=== PATIENT | female | born 2000 | race Caucasian/White ===

== ENCOUNTER 2018-08-04 21:44 | Emergency (ER) | payer MEDICAID ==
[~2018-08-04] VITALS: Ht 149.9 cm; Wt 53.0 kg
[2018-08-05 01:32] LABS: CLARITY URINE CLOUDY (CLEAR); COLOR URINE YELLOW (YELLOW); KETONES URINE TRACE (NEGATIVE); LEUKOCYTE ESTERASE URINE 1+ (NEGATIVE); NITRITE URINE NEGATIVE (NEGATIVE); OCCULT BLOOD URINE 3+ (NEGATIVE); PROTEIN URINE TRACE (NEGATIVE); SPECIFIC GRAVITY URINE 1.026 (1.005-1.030)
[2018-08-05 03:33] VITALS: BP 106/71
== END 2018-08-05 03:34 | disposition home or self-care (01) ==
LOC: ER 21:44
DX: O02.1 Missed abortion (principal); O23.41 Unspecified infection of urinary tract in pregnancy, first trimester; Z3A.08 8 weeks gestation of pregnancy
CPT/HCPCS: 36415; 76801; 81025; 84702; 86850; 86900; 87077; 87186; 99284

== ENCOUNTER 2018-08-06 20:56 | Emergency (ER) | payer MEDICAID ==
[~2018-08-06] VITALS: Ht 149.9 cm; Wt 52.0 kg
[2018-08-06 21:35] VITALS: BP 100/68
== END 2018-08-07 02:03 | disposition left against medical advice (07) ==
LOC: ER 20:56
DX: N93.8 Other specified abnormal uterine and vaginal bleeding (principal); Z53.21 Procedure and treatment not carried out due to patient leaving prior to being seen by health care provider

== ENCOUNTER 2018-11-26 05:46 | Emergency (ER) | payer MEDICAID ==
[~2018-11-26] VITALS: Ht 149.9 cm; Wt 48.0 kg
[2018-11-26 06:49] LABS: CLARITY URINE TURBID (CLEAR); COLOR URINE YELLOW (YELLOW); KETONES URINE TRACE (NEGATIVE); LEUKOCYTE ESTERASE URINE 3+ (NEGATIVE); NITRITE URINE NEGATIVE (NEGATIVE); OCCULT BLOOD URINE TRACE (NEGATIVE); PH URINE 5.5 (4.5-8.0); PROTEIN URINE 1+ (NEGATIVE); SPECIFIC GRAVITY URINE 1.027 (1.005-1.030)
[2018-11-26 07:18] VITALS: BP 104/66
== END 2018-11-26 07:24 | disposition home or self-care (01) ==
LOC: ER 05:46
DX: O23.41 Unspecified infection of urinary tract in pregnancy, first trimester (principal); Z3A.00 Weeks of gestation of pregnancy not specified
CPT/HCPCS: 81003; 81025; 87077; 87186; 87210; 99283

== ENCOUNTER 2021-04-18 07:22 | Emergency (ER) | payer MEDICAID ==
[~2021-04-18] VITALS: Ht 149.9 cm; Wt 50.0 kg
[2021-04-18] MEDS ORDERED: IPRATROPIUM BROMIDE (0.02%) 0.5MG/2.5ML NEB HHN STA (08:20)
[2021-04-18] MEDS ORDERED: ALBUTEROL (0.083%) 2.5MG/3ML NEB HHN STA (08:20)
[2021-04-18] MEDS ORDERED: ALBU6.7H9 INH (09:03)
[2021-04-18 09:26] VITALS: BP 118/72
== END 2021-04-18 09:27 | disposition home or self-care (01) ==
LOC: ER 07:22
DX: J45.901 Unspecified asthma with (acute) exacerbation (principal)
CPT/HCPCS: 81025; 93005; 94640; 99283; Z7610

== ENCOUNTER 2023-02-20 06:25 | Emergency (ER) | payer SELFPAY ==
[~2023-02-20] VITALS: Ht 149.9 cm; Wt 52.0 kg
[~2023-02-20 06:25] MED LIST: ALBU6.7H3 INH
[2023-02-20 06:34] VITALS: BP 115/82; RESP 18; TEMP 98.1; O2SAT 98
[2023-02-20 06:37] VITALS: PULSE 88
[2023-02-20] MEDS ORDERED: MICO45CR16 VG (07:23)
[2023-02-20 07:48] LABS: UCG SCREEN POSITIVE
[2023-02-20 07:51] LABS: CLARITY URINE TURBID (CLEAR); COLOR URINE YELLOW (YELLOW); GLUCOSE URINE NEGATIVE (NEGATIVE); KETONES URINE NEGATIVE (NEGATIVE); LEUKOCYTE ESTERASE URINE 3+ (NEGATIVE); NITRITE URINE NEGATIVE (NEGATIVE); OCCULT BLOOD URINE TRACE (NEGATIVE); PROTEIN URINE NEGATIVE (NEGATIVE); SPECIFIC GRAVITY URINE 1.013 (1.005-1.030); UROBILINOGEN URINE 0.2 E.U./dL (0.2-1.0)
[2023-02-20 08:40] LABS: SQUAMOUS EPITHELIAL CELL URINE 2+ /lpf (RARE/1+)
[2023-02-20 08:41] LABS: BACTERIA URINE 1+
[2023-02-20 08:43] LABS: RBC URINE NONE SEEN /hpf (0-2)
== END 2023-02-20 09:01 | disposition home or self-care (01) ==
LOC: ER 06:25
DX: B37.31 Acute candidiasis of vulva and vagina (principal); J45.909 Unspecified asthma, uncomplicated
CPT/HCPCS: 81003; 81025; 99283

== ENCOUNTER 2023-04-22 14:26 | Emergency (ER) | payer MEDICAID ==
[~2023-04-22] VITALS: Ht 149.9 cm; Wt 52.0 kg
[~2023-04-22 14:26] MED LIST changes: +MICO45CR16 VG
[2023-04-22 14:32] VITALS: BP 117/68; PULSE 104; RESP 18; TEMP 98.2; O2SAT 100
[2023-04-22] MEDS ORDERED: ISOP30DR11 EACH EAR (15:31)
== END 2023-04-22 16:14 | disposition home or self-care (01) ==
LOC: ER 14:26
DX: H61.22 Impacted cerumen, left ear (principal); J45.909 Unspecified asthma, uncomplicated
CPT/HCPCS: 99282

== ENCOUNTER → 2023-10-11 | Emergency (ER) | payer MEDICAID ==
[~2023-10-11] VITALS: Ht 160 cm; Wt 66.0 kg
[~2023-10-11] MED LIST changes: +ISOP30DR11 EACH EAR; +MICO14CR6 TP; +NITR-87 MT
[2023-10-11 16:25] VITALS: O2SAT 97
[2023-10-11 18:20] LABS: CLARITY URINE CLEAR (CLEAR); COLOR URINE YELLOW (YELLOW); GLUCOSE URINE NEGATIVE (NEGATIVE); KETONES URINE NEGATIVE (NEGATIVE); LEUKOCYTE ESTERASE URINE 3+ (NEGATIVE); NITRITE URINE NEGATIVE (NEGATIVE); OCCULT BLOOD URINE NEGATIVE (NEGATIVE); PH URINE 6.5 (4.5-8.0); PROTEIN URINE NEGATIVE (NEGATIVE); SPECIFIC GRAVITY URINE 1.017 (1.005-1.030); UROBILINOGEN URINE 0.2 E.U./dL (0.2-1.0)
[2023-10-11 19:11] LABS: BACTERIA URINE 1+; RBC URINE 0-2 /hpf (0-2); SQUAMOUS EPITHELIAL CELL URINE 1+ /lpf (RARE/1+)
[2023-10-11 20:15] VITALS: BP 112/75; PULSE 98; RESP 18; TEMP 98.3
== END ==
LOC: ER 16:09
DX: N39.0 Urinary tract infection, site not specified (principal); N76.0 Acute vaginitis; J45.909 Unspecified asthma, uncomplicated
CPT/HCPCS: 81003; 81025; 99283